=== PATIENT | female | born 1980 | race Caucasian/White ===

== ENCOUNTER → 2022-06-17 | Outpatient (CLI) | payer SELFPAY ==
[~2022-06-17] MED LIST: ALBU90OI INH; CODGUAEL PO; SPACER IH
[2022-06-17 15:49] LABS: Percent Saturation 34.7 % (15.0-50.0)
[2022-06-17 15:52] LABS: BASOPHILS ABSOLUTE AUTO 0.04 K/mm3 (0.00-0.23); BASOPHILS PERCENT AUTO 1 % (0-2); EOSINOPHILS ABSOLUTE AUTO 0.23 K/mm3 (0.00-0.68); EOSINOPHILS PERCENT AUTO 3 % (0-6); Hematocrit 38.9 % (33.0-51.0); Hemoglobin 13.4 g/dL (11.5-16.0); IMMATURE GRAN ABSOLUTE AUTO 0.02 K/mm3 (0.00-0.10); IMMATURE GRAN PERCENT AUTO 0 % (0-1); LYMPHOCYTES ABSOLUTE AUTO 2.35 K/mm3 (0.84-5.20); LYMPHOCYTES PERCENT AUTO 29 % (21-46); MONOCYTES ABSOLUTE AUTO 0.41 K/mm3 (0.16-1.47); MONOCYTES PERCENT AUTO 5 % (4-13); Mean Corpuscular HGB 34.1 pg (26.0-34.0); Mean Corpuscular HGB Conc 34.4 g/dL (31.5-36.5); Mean Corpuscular Volume 99 fL (80-100); Mean Platelet Volume 9.4 fL (9.1-12.4); NEUTROPHILS ABSOLUTE AUTO 5.04 K/mm3 (1.96-9.15); NEUTROPHILS PERCENT AUTO 62 % (41-73); Platelet Count 258 K/mm3 (150-400); RDW Coefficient Variation 12.2 % (11.7-14.2); RDW Standard Deviation 44.5 fL (35.1-46.3); Red Blood Cell Count 3.93 M/mm3 (3.80-5.20); White Blood Cell Count 8.09 K/mm3 (4.00-11.30)
[2022-06-17 15:55] LABS: Thyroid Stimulating Hormone 1.97 uIU/mL (0.360-4.800)
== END | disposition home or self-care (01) ==
LOC: LAB SHORT 09:55
PROVIDERS: Hospitalist
DX: N92.1 Excessive and frequent menstruation with irregular cycle (principal)
CPT/HCPCS: 82728; 83540; 83550; 84443; 85025

== ENCOUNTER → 2022-06-24 | Outpatient (CLI) | payer BC | END | disposition home or self-care (01) | LOC: PLD 13:33 → LAB SHORT 13:33 | DX: D23.4 Other benign neoplasm of skin of scalp and neck (principal); L81.8 Other specified disorders of pigmentation | CPT/HCPCS: 88305 ==

== ENCOUNTER 2024-08-30 06:06 | Observation (INO) | payer OTHER ==
[~2024-08-30] VITALS: Ht 165.1 cm; Wt 95.2 kg
[2024-08-30] VITALS (11 sets, daily range): BP systolic 106–157; BP diastolic 61–92
[2024-08-30] MEDS ORDERED: Morphine Sulfate 4 MG/1 ML Injection IV ONE (06:35)
[2024-08-30 06:38] LABS: BASOPHILS ABSOLUTE AUTO 0.06 K/mm3 (0.00-0.23); BASOPHILS PERCENT AUTO 0 % (0-2); EOSINOPHILS PERCENT AUTO 1 % (0-6); Hematocrit 41.2 % (33.0-51.0); Hemoglobin 14.1 g/dL (11.5-16.0); IMMATURE GRAN ABSOLUTE AUTO 0.08 K/mm3 (0.00-0.10); IMMATURE GRAN PERCENT AUTO 0 % (0-1); LYMPHOCYTES ABSOLUTE AUTO 2.53 K/mm3 (0.84-5.20); LYMPHOCYTES PERCENT AUTO 13 % (21-46); MONOCYTES ABSOLUTE AUTO 0.88 K/mm3 (0.16-1.47); MONOCYTES PERCENT AUTO 5 % (4-13); Mean Corpuscular HGB 33.7 pg (26.0-34.0); Mean Corpuscular HGB Conc 34.2 g/dL (31.5-36.5); Mean Corpuscular Volume 98 fL (80-100); Mean Platelet Volume 8.7 fL (9.1-12.4); NEUTROPHILS ABSOLUTE AUTO 15.93 K/mm3 (1.96-9.15); NEUTROPHILS PERCENT AUTO 81 % (41-73); Platelet Count 276 K/mm3 (150-400); RDW Coefficient Variation 12.8 % (11.7-14.2); RDW Standard Deviation 45.7 fL (35.1-46.3); Red Blood Cell Count 4.19 M/mm3 (3.80-5.20); White Blood Cell Count 19.58 K/mm3 (4.00-11.30)
[2024-08-30] MEDS ORDERED: Ondansetron HCl 2 MG / ML 2ML Vial IV ONE (06:45)
[2024-08-30 06:59] LABS: Albumin, Blood 3.7 g/dL (3.4-5.0); Albumin/Globulin Ratio 1.1 (0.8-1.8); Bilirubin, Total 0.6 mg/dL (0.1-1.0); Bun/Creatinine Ratio 12.8 (12.0-20.0); Creatinine, Blood 0.78 mg/dL (0.40-1.00); Globulin, Blood 3.5 g/dL (2.2-4.0); Potassium, Blood 4.2 mmol/L (3.5-5.5); Total Protein, Blood 7.2 g/dL (6.4-8.2)
[2024-08-30] MEDS ORDERED: NS 1,000 ML IV SCH ×2 (07:05→16:55)
[2024-08-30 08:17] LABS: Source, Urine Clean Catch
[2024-08-30 08:21] LABS: Appearance, Urine Clear (Clear); Bilirubin, Urine Neg (Neg); Blood, Urine 1+ (Neg); Glucose Qualitative, Urine Neg (Neg); Ketones, Urine Neg (Neg); Leukocyte Esterase, Urine Neg (Neg); Nitrite, Urine Neg (Neg); Protein, Urine Neg (Neg); Specific Gravity, Urine 1.005 (1.003-1.022); Urobilinogen, Urine NORM (Normal)
[2024-08-30 08:23] LABS: Color, Urine Pale Yellow (P-Yellow)
[2024-08-30 08:30] LABS: Amorphous Light (0-Heavy); Bacteria Few /hpf; Red Blood Cells, Urine 0-2 /hpf (0-2); Squamous Epithelial Cells Few /hpf (Few); White Blood Cells, Urine 0-2 /hpf (0-5)
[2024-08-30] MEDS ORDERED: MetroNIDAZOLE 500MG/NS 100 ml 100 ML IV ONE (09:00)
[2024-08-30] MEDS ORDERED: CefTRIAXone Sodium 1,000 MG in NS 100 ML IV ONE (09:00)
[2024-08-30] MEDS ORDERED: FentaNYL Citrate 50 MCG/ML 2 ML Injection ONE ×2 (15:15→16:59)
[2024-08-30] MEDS ORDERED: propofoL 20 ML IV ONE (15:15)
[2024-08-30] MEDS ORDERED: Rocuronium Bromide 10 MG/ML 5ML Injection IV ONE ×2 (15:15→16:22)
[2024-08-30] MEDS ORDERED: Bupivacaine 0.5% HCl 5 MG/ML 30MLVIAL ONE (15:29)
--- NOTE | 2024-08-30 15:34 | NUR ---
History, Chart, Medications and Allergies reviewed before start of procedure. Pre-Op teaching done. Pt verbalizes understanding. Patient confirms NPO status and agrees with scheduled surgery.
[2024-08-30] MEDS ORDERED: Lactated Ringer's 1,000 ML IV SCH (15:45)
[2024-08-30] MEDS ORDERED: Ondansetron HCl 2 MG / ML 2ML Vial ONE (16:04)
[2024-08-30] MEDS ORDERED: Ketorolac Tromethamine 30mg Vial ONE (16:04)
[2024-08-30] MEDS ORDERED: Dexamethasone Sod Phos 10 MG/ML 1ML VIAL ONE (16:05)
[2024-08-30] MEDS ORDERED: Sugammadex Sodium 200 MG/2ML SDV (100 MG/ML) ONE (16:05)
[2024-08-30] MEDS ORDERED: FentaNYL Citrate 50 MCG/ML 2 ML Injection IV PRN (16:50)
[2024-08-30] MEDS ORDERED: HYDROcodone 5-APAP 325 TAB PO PRN (16:55)
[2024-08-30] MEDS ORDERED: Ondansetron 4 MG TAB PO PRN (16:55)
[2024-08-30] MEDS ORDERED: MetroNIDAZOLE 500MG/NS 100 ml 100 ML IV SCH (18:00)
--- NOTE | 2024-08-30 19:46 | NUR ---
SUMMARY: PT IS POD1 LAP APPY. A/O, VSS. PT PAIN MANAGED, PT HAS AMBULATED AND VOIDED. NO N/V. SURGICAL SITES WNL. REPORT PASSED TO MANISH RN. PT USING CALL LIGHT AND MAKES NEEDS KNOWN
[2024-08-31 00:25] VITALS: BP 109/69
--- NOTE | 2024-08-31 04:31 | NUR ---
PT IS POD 0 FOR AN APPY. AAOX4 AND PLEASANT. INDEPENDENT WITH AMBULATION. PAIN HAS BEEN WELL CONTROLLED WITH 1 TAB NORCO PRN. PT HAS TOLERATED FOOD AND WATER AND DENIES N/V. PT HAS VOIDED AND WALKED IN THE HALLS MULTIPLE TIMES THROUGH THE NIGHT. VSS, WILL CONTINUE TO MONITOR.
[2024-08-31 04:39] VITALS: BP 107/66
[2024-08-31 07:44] VITALS: BP 108/74
[2024-08-31] MEDS ORDERED: CefTRIAXone Sodium 2,000 MG in NS 100 ML IV SCH (09:00)
[2024-08-31] MEDS ORDERED: Norco 5-325 Ta1 EACH PO (09:04)
--- NOTE | 2024-08-31 09:50 | NUR ---
DISCHARGE EATIING, DRINKING, & PASSING GAS. PAIN WELL CONTROLLED. AMBULATING EASILY. Rx GIVEN. DECLINES WC OUT & AMBULATES OUT w/ MOM.
== END 2024-08-31 09:53 | disposition home or self-care (01) ==
LOC: ER 06:06 → SURS 06:07 → ERHOLD 08:59 → SURS 08:59 → ER 08:59 → ERHOLD 16:38 → SURS 16:38
PROVIDERS: Emergency Medicine; ADMIT Surgery
PROC: 0DTJ4ZZ Resection of Appendix, Percutaneous Endoscopic Approach (ICD-10-PCS; principal; 2024-08-30 14:30)
DX: K35.80 Unspecified acute appendicitis (principal); N83.202 Unspecified ovarian cyst, left side; F17.200 Nicotine dependence, unspecified, uncomplicated
CPT/HCPCS: 74177; 76705; 80053; 81001; 83690; 84703; 85025; 88304; 96374-59; 96375; 99285-25; A9270; J0696; J1100; J1885; J2270; J2405; J2704; J3010; J7030; J7120; Q9967